=== PATIENT | male | born 1990 | race Caucasian/White ===

== ENCOUNTER 2021-09-12 12:44 | Emergency (ER) | payer OTHER ==
[~2021-09-12] VITALS: Ht 182.9 cm; Wt 75.6 kg
[2021-09-12] MEDS ORDERED: CLARITHROMYCIN500 MG PO (12:58)
[2021-09-12] MEDS ORDERED: AMOXICILLIN500 MG PO (12:58)
[2021-09-12] MEDS ORDERED: DICYCLOMINE HCL10 MG PO (12:58)
[2021-09-12] MEDS ORDERED: METRONIDAZOLE500 MG PO (12:58)
[2021-09-12] MEDS ORDERED: ONDANSETRON ODT8 MG PO (12:59)
== END 2021-09-12 16:24 | disposition home or self-care (01) ==
LOC: ED 12:44
DX: R10.11 Right upper quadrant pain (principal); Z79.899 Other long term (current) drug therapy
CPT/HCPCS: 36415; 74177; 80053; 81001; 83690; 85025; 99284-25; J2405